=== PATIENT | female | born 1985 | race Caucasian/White ===

== ENCOUNTER 2023-07-12 10:15 | Emergency (ER) | payer OTHER, SELFPAY ==
--- NOTE | ~2023-07-12 | XR_ITS ---
EXAMINATION: XR CHEST CLINICAL INFORMATION: Cough. COMPARISON: Chest radiograph dated 08/05/2011. TECHNIQUE: 2 views of the chest were obtained. FINDINGS: The lungs are clear. The cardiomediastinal silhouette is normal in size. There is no pleural effusion or pneumothorax. No acute osseous abnormality. XR/XR chest 2V IMPRESSION: No acute cardiopulmonary findings.
[2023-07-12 10:43] VITALS: BP 148/102; PULSE 80; RESP 20; TEMP 35.9; O2SAT 99; BMI 42.2
[2023-07-12 11:22] LABS: COVID-19 Test Negative (Negative); IDNOW Serial# 6674DD1D
[2023-07-12 11:32] LABS: IDNOW Serial# BCCEAD1C; Influenza A Negative (Negative); Influenza B2 Negative (Negative)
--- NOTE | 2023-07-12 13:32 | ED_ITS ---
HPI - General Adult General Chief complaint: Upper Respiratory Symptoms Stated complaint: Pain when breathing Time Seen by Provider: 07/12/23 13:17 Source: patient Mode of arrival: ambulatory Limitations: no limitations History of Present Illness HPI narrative: Patient is a 38-year-old female presenting to the emergency department with complaint of cough and shortness of breath. States that symptoms began with a scratchy throat on Wednesday, then progressed to cough. Reports shortness of breath was worse while at work. Denies fevers. Denies any ear pain, chest pain, palpitations. Denies any abdominal pain, nausea, vomiting, diarrhea. MD complaint: Cough Onset (ago): day(s) Treatments prior to arrival: none Related Data Previous Rx's Medication Instructions Recorded benzonatate 100 mg capsule 100 mg PO TID PRN cough #20 caps 07/12/23 Allergies Allergy/AdvReac Type Severity Reaction Status Date / Time No Known Allergies Allergy Verified 07/12/23 10:46 Review of Systems Review of Systems: As per HPI. Yes all other systems are reviewed and are negative Constitutional: Constitutional: Reports as per HPI [facility] Social History Social History Advance Directives: No Advance Directives Information Provided: No Physical Exam ED Vital Signs: Vital Signs - 24 hr 07/12/23 10:43 07/12/23 13:36 Temperature 96.7 F L 97.7 F Pulse Rate 80 74 Respiratory Rate 20 16 Blood Pressure 148/102 H 129/78 Pulse Oximetry 99 98 Oxygen Delivery Method Room Air Room Air BMI result Body Mass Index 42.2 Vital signs have been reviewed and appear to be correct. Blood pressure normal. Heart rate normal. Respiratory rate normal. Temperature normal. Oxygen satur ation normal. Const General: cooperative, healthy appearing and no acute distress Orientation/consciousness: oriented to person, oriented to place, oriented to time and patient oriented x3 Limitations: no limitations HENMT Head: Yes normocephalic and Yes atraumatic Ears: external ears normal General nose exam: Normal external nose present Face and sinus: Yes face symmetric Mouth: oropharynx normal and moist mucous membranes Throat: Yes uvula midline Eyes Pupils: Equal, round and reactive pupils present Neck Neck: Yes normal visual inspection and Yes supple Resp Effort & Inspection: normal respiratory effort and able to speak in complete sentences Auscultation: clear to auscultation bilaterally Cardio Rate: regular rate Rhythm: regular rhythm Heart sounds: S1 normal heart sound present and S2 normal heart sound present GI Palpation (GI): Soft to palpation and nontender Auscultation: normoactive bowel sounds General: Yes no CVA tenderness Back/Spine/Pelvis Back: no CVA tenderness Skin General skin exam: elasticity normal and turgor normal Neuro General: oriented to person, oriented to place, oriented to time, patient oriented x3, moves all extremities, no focal motor deficits and CN's II-XI intact bilaterally Cranial nerves: Yes Equal, round and reactive pupils present Cognition (Neuro): normal cognition Extrem General: Yes full ROM, Yes no pedal edema and Yes no calf tenderness Psych Mental Status: mental status grossly normal Affect: normal affect Thought process: Normal thought process present Medical Decision Making Medical Decision Making [facility] Narrative: Patient is a 38-year-old female presenting to the emergency department with complaint of cough and shortness of breath. On exam patient is awake, A+Ox3, VS WNL, afebrile, normal neurological exam without focal deficits, physical exam findings as above. Given reported symptoms and physical exam findings, initial differential includes viral URI, COVID, flu, strep pharyngitis, bronchitis, pneumonia. X-ray chest notable for no evidence of pneumonia. My interpretation is in agreement with the radiologist's interpretation. Results discussed with patient and all questions answered. Likely viral URI, advised patient treatment is symptom management, can alternate Tylenol and ibuprofen, ensure adequate rest, adequate fluid intake. Will prescribe benzonatate for cough. Instructed patient to follow-up with primary care provider. Return precautions discussed at bedside. Patient verbalized understanding of and agreement with plan. Differential Diagnosis Differential Diagnoses: The differential diagnosis associated with the presentation includes As per [facility] Lab Data [facility] Lab Attestation statement: I reviewed the patient's lab results. As per [facility] Labs: Lab Results 07/12/23 07/12/23 Range/Units 11:01 13:39 COVID-19 (ALONZO) Negative (Negative) COVID-19 Clin Com See Note Influenza Type A (EDUARDO) Negative (Negative) Influenza Type B (EDUARDO) Negative (Negative) Influenza A & B Note See Note S. pyogenes GrpA EDUARDO Negative (Negative) Independent Interpretation I performed an independent interpretation of an: Plain X-Ray Interpretation: No evidence of pneumonia on chest x-ray Radiology Impression Discussion of test interpretation with radiology: I have reviewed the radiologist's reading. Radiologist Impression: XR/XR chest 2V IMPRESSION: No acute cardiopulmonary findings. External Record Review External record reviewed: Inpatient record, Office record and Outpatient record Prescription Management I considered prescription management with: Other Discharge Plan Discharge Clinical Impression: Viral upper respiratory infection Patient Disposition: Home, Self-Care Instructions: Upper Respiratory Infection (DC), Viral Syndrome (ED) Additional Instructions: You were evaluated in the emergency department today for sore throat and cough. Your Covid, flu, and strep tests were all negative. Your symptoms are likely related to a viral illness which will resolve on its own with time and rest. You should ensure adequate fluid intake, and can use Tylenol 650 mg or ibuprofen 600 mg every 6 hours as needed for fever or discomfort. Please follow-up with your primary care provider this week. Return to the emergency department if you develop chest pain, worsening shortness of breath, difficulty swallowing, fever 100.4? F or greater or any other concerning symptoms. Prescriptions: New benzonatate 100 mg capsule 100 mg PO TID PRN (Reason: cough) Qty: 20 0RF
[2023-07-12 13:36] VITALS: BP 129/78; PULSE 74; RESP 16; TEMP 36.5; O2SAT 98
[2023-07-12 13:52] LABS: IDNOW Serial# 58CA691E; Strep A Nucleic Acid Negative (Negative)
== END 2023-07-12 14:32 | disposition home or self-care (01) ==
PROVIDERS: Registered Nurse Emergency; Emergency Provider Emergency Medicine; PCP Family Medicine
DX: J06.9 Acute upper respiratory infection, unspecified (principal); R06.02 Shortness of breath; R05.9 Cough, unspecified; Z11.52 Encounter for screening for COVID-19
CPT/HCPCS: 71046; 87502; 87635; 87651; 99283

== ENCOUNTER 2024-03-04 19:08 | Emergency (ER) | payer OTHER, SELFPAY ==
--- NOTE | ~2024-03-04 | XR_ITS ---
EXAMINATION: XR LUMBOSACRAL SPINE CLINICAL INFORMATION: Back pain. COMPARISON: None available. TECHNIQUE: AP and lateral views of the lumbar spine and lateral view of the lumbosacral junction. FINDINGS: Mild degenerative disc disease at L2-L3 with slight loss of disc height and small anterior osteophytes. Mild facet arthropathy at L5-S1. There is mild degenerative osteophytes in the SI joints. Soft tissues are unremarkable. Bone mineralization is normal. XR/XR lumbar spine 2-3V IMPRESSION: 1. Mild degenerative disc disease at L2-L3. 2. Mild facet arthropathy at L5-S1. Electronically signed by: Brendan Younger MD 03/04/2024 09:52 PM EDT RP
--- NOTE | ~2024-03-04 | XR_ITS ---
EXAMINATION: XR CHEST CLINICAL INFORMATION: Back/shoulder pain COMPARISON: Chest x-ray on 07/12/2023 TECHNIQUE: Frontal view of the chest was obtained. FINDINGS: No significant abnormality is noted involving the heart, lungs, mediastinum, bony thorax or soft tissues. XR/XR chest 2V IMPRESSION: Unremarkable examination. Electronically signed by: Vanessa Gregory MD 03/04/2024 09:34 PM EDT RP
[2024-03-04 19:12] VITALS: BP 148/80; PULSE 84; RESP 22; TEMP 36.6; O2SAT 97; BMI 42.0
--- NOTE | 2024-03-04 19:14 | ED_ITS ---
HPI - Back Pain/Injury General Chief Complaint: Back Pain/Injury Stated Complaint: back and shoulder pain Time Seen by Provider: 03/04/24 20:57 Source: patient and family Mode of arrival: ambulatory Limitations: no limitations History of Present Illness ED Provider: Dr. Carlos Sr HPI Narrative: 38-year-old female with a history of hypertension, depression, chronic back pain who presents emergency department for evaluation of increased middle to lower back pain and right shoulder pain. Patient states she has had lower back pain for years with increased pain over the past year. Patient has a collections assistant that has been evaluating her and she states that the collections assistant thinks that she may have psoriatic arthritis and has been waiting to get an MRI of the patient's back but this is not been done yet. Patient states that she has had increased back pain today and the pain is 10/10. She states the pain is in the center of her back from her mid back down to her buttocks. The patient states that over the last week she has also noted pain in her right shoulder which is worse with movement. She denied fever, chills, numbness or weakness in her lower extremities, loss of bowel or bladder control. The patient states she has been taking Tylenol and ibuprofen with no relief of her discomfort. Related Data Previous Rx's ?Medication ?Instructions ?Recorded benzonatate 100 mg capsule 100 mg PO TID PRN cough #20 caps 07/12/23 cyclobenzaprine 10 mg tablet 10 mg PO TID PRN muscle pain or 03/04/24 spasm #20 tabs oxycodone 5 mg tablet 5 mg PO Q6H PRN pain #14 tabs 03/04/24 prednisone 20 mg tablet 60 mg (3 x 20 mg) PO DAILY 5 days 03/04/24 #15 tabs Allergies Allergy/AdvReac Type Severity Reaction Status Date / Time No Known Allergies Allergy Verified 03/04/24 19:13 Review of Systems 2 Review of Systems: Yes all other systems are reviewed and are negative [facility] Past Medical History [facility] Narrative: Social history: The patient does vape nicotine products. She denies alcohol use. She denies drug use. Social History Social History Advance Directives: No Advance Directives Information Provided: No Do you have a plan to hurt others: No Plan Physical Exam 2 Vital Signs: Vital Signs: Last Vital Signs Temp 97.9 F 03/04/24 19:12 Pulse 84 03/04/24 19:12 Resp 22 H 03/04/24 19:12 BP 148/80 H 03/04/24 19:12 Pulse Ox 97 03/04/24 19:12 O2 Del Method Room Air 03/04/24 19:12 BMI result Body Mass Index 42.0 Vital signs revealed an elevated respiratory rate of 2200 elevated blood pressure of 148/80 Exam: General: Awake, alert in no distress, patient's weight was 117.9 kg, elevated BMI of 42 kg per m2. Head: Normocephalic, atraumatic EENT: PERRL, Lids normal, sclera normal, conjunctiva normal, nose normal , ears normal, throat without erythema or exudates Neck: Supple, no adenopathy Lung: breath sounds symmetric, no wheezing, rales or rhonchi Chest: symmetric movement, nontender Heart: regular rate and rhythm, normal S1, S2 no murmurs or rubs Abdomen: soft, non-tender, nondistended, normal bowel sounds Back: Patient has tenderness palpation of her lumbar sacral vertebrae with tenderness palpation of the lumbar sacral paraspinal muscles. She has negative straight leg raises bilaterally. Extremities: no deformities, patient has no tenderness palpation of her upper extremities. She has full range of motion of both shoulders elbows and wrists with no increased warmth over these joints. Patient's extremities are neurovascularly intact Neuro: Awake, alert, oriented, normal speech, cranial nerves intact, moves all extremities symmetrically Psych: Pleasant, cooperative Course Course Course Narrative: This is a rapid medical exam. Deferred additional HPI, ROS, PE to primary provider. 38 yo female with history of psoriasis, HTN here with complaints of lower/mid back pain x years, right shoulder/right arm numbness x 1 month. Seen by collections assistant and is waiting for an MRI of your pain. Taking motrin/tylenol for pain with no relief. Will obtain labs, urine, EKG, x-ray JOSE EDUARDO Wharton APRN Medical Decision Making Medical Decision Making MDM Narrative: 38-year-old female with a history of hypertension, depression, chronic back pain who presents emergency department for evaluation of increased middle to lower back pain and right shoulder pain. Patient states she has had lower back pain for years with increased pain over the past year. Patient states that the pain in her back increased today and was 10/10 and she got no relief with ibuprofen or Tylenol. Patient was also been having pain in her right shoulder x1 month which is gotten worse as well. Vital signs revealed an elevated respiratory rate and elevated blood pressure. Physical examination did reveal tenderness palpation over the lumbar sacral spine and lumbar sacral paraspinal muscles with a normal neurologic exam and negative straight leg raises bilaterally. Examination the patient's right shoulder revealed no tenderness palpation, no increased warmth over the joints of her right upper extremity and full range of motion. Differential diagnosis: ?Includes but is not limited to: Back pain: Degenerative joint disease, degenerative disc disease, spinal stenosis, musculoskeletal pain, flare-up of chronic pain syndrome Right shoulder pain: Myocardial infarction, myocardial ischemia, musculoskeletal pain, degenerative joint disease, rheumatologic disease Following evaluation was ordered: CBC, BNP, troponin, urinalysis, 12 EKG, chest x-ray two view, lumbar spine x-rays Patient was initially treated with the following: Prednisone 60 mg orally, cyclobenzaprine 10 mg orally, oxycodone 5 mg orally Course: 21:48 Interpretation patient's laboratory evaluation as follows: Normocytic anemia with an H&H of 12 and 34.6. WBC was normal 8700. BNP revealed an elevated glucose of 130. High sensitive troponin I was below detectable limits. Twelve EKG was unremarkable. My interpretation of the patient's chest x-ray and lumbar sacral spine x-rays was no acute disease or fracture noted. Patient's symptoms are consistent with flare-up of her chronic lower back pain and musculoskeletal injury to the right shoulder. Patient will be treated with prednisone 60 mg once a day x5 days since she states this has benefitted her back pain in the past. She was also advised to take Tylenol and for pain not relieved by prednisone and Tylenol she was prescribed oxycodone 5 mg every 6 hours as needed for pain. She was also prescribed cyclobenzaprine 10 mg 3 times a day as needed for pain or spasm. Patient will be referred to our pain management clinic to see if they can help with her current pain. I did tell her she should also follow up with a collections assistant to continue to pursue getting an MRI of her lower back. Admission/Observation Consideration of admission/observation: Escalation of care including admission/observation considered Lab Data MDM Lab Attestation statement: I reviewed the patient's lab results. 03/04/24 19:33 03/04/24 19:18 Labs: Lab Results 03/04/24 03/04/24 Range/Units 19:18 19:33 WBC 8.7 (4.8-10.8) X10*3/uL RBC 4.04 L (4.20-5.50) X10*6/uL Hgb 12.0 (12.0-16.0) g/dl Hct 34.6 L (37.0-47.0) % MCV 85.6 (80.0-98.0) fL MCH 29.7 (27.0-33.0) pg MCHC 34.7 (31.0-35.0) g/dl RDW 12.5 (11.0-16.0) % Plt Count 247 (160-400) X10*3/uL MPV 9.8 (9.4-12.3) fL Immature Gran % (Auto) 0.2 (0.0-0.4) % Neut % (Auto) 62.7 (45-73) % Lymph % (Auto) 28.5 (20-40) % Redwood % (Auto) 6.0 (2-11) % Eos % (Auto) 2.3 (0-4) % Baso % (Auto) 0.3 (0-2) % Lymph # (Auto) 2.5 (1.2-4.9) X10*3/uL Redwood # (Auto) 0.5 (0.1-1.2) X10*3/uL Eos # (Auto) 0.2 (0.0-0.4) X10*3/uL Baso # (Auto) 0.0 (0.0-0.2) X10*3/uL Abs Immat Gran (auto) 0.02 (0.00-0.03) X10*3/uL Absolute Neuts (auto) 5.5 (2.0-8.3) x10*3/uL Absolute Nucleated RBC 0.000 (0.0-0.012) X10*3/uL Nucleated RBC % (auto) 0.0 (0.0-0.2) /100WBC Sodium 142 (135-145) mmol/L Potassium 3.6 (3.3-5.1) mmol/L Chloride 111 H (96-108) mmol/L Carbon Dioxide 22 (22-29) mmol/L Anion Gap 13 (12-20) BUN 10 (9-16) mg/dL Creatinine 0.72 (0.5-1.4) mg/dL Estim Creat Clear Calc 141.1 Estimated GFR > 60 Random Glucose 130 H (60-115) mg/dL Calcium 8.9 (8.4-10.2) mg/dL Troponin I High Sens < 2.7 (<3.5-17.0) ng/L Independent Interpretation I performed an independent interpretation of an: EKG Interpretation: My interpretation patient's 12 lead EKG done at 19:17 hours is as follows: Normal sinus rhythm with a rate of 79, normal IA interval, QRS duration and QTC interval, no ST segment elevation, no ST segment depression, no significant T- wave abnormalities-this is a normal EKG. My interpretation patient's two view chest x-ray is as follows: No acute disease My interpretation patient's lumbar sacral spine x-rays is as follows: No acute disease Radiology Impression Discussion of test interpretation with radiology: I have reviewed the radiologist's reading. Radiologist Impression: XR chest 2V IMPRESSION: Unremarkable examination. Dictated By: Vanessa Gregory MD Discharge Plan Discharge Clinical Impression: Acute exacerbation of chronic low back pain, Acute pain of right shoulder Patient Disposition: Home, Self-Care Instructions: Chronic Pain (ED) Additional Instructions: Your blood work very mild anemia, your hematocrit (percentage of red blood cells) was 34.6. Normal range is 37-47. Your basic metabolic panel was normal. Your high sensitive troponin I (marker of heart damage) was normal. Your EKG was normal. Your chest x-ray was unremarkable. The official reading from the radiologist is pending. The x-rays of your lumbar sacral spine did not reveal any acute broken bones, you do have arthritis in you may have some disc disease based on my interpretation . The official radiology reading is pending. At this time I believe that you having a flare-up of your chronic pain condition. Take prednisone 20 mg pills, 3 pills once a day for 5 days. This is an anti inflammatory steroid. While you ?are taking prednisone, do not take any NSAIDs (Motrin, Advil, ibuprofen, Aleve, naproxen). Take Tylenol (acetaminophen) 500 mg pills, 2 pills every 6 hours as needed for pain. For pain not relieved by prednisone or Tylenol take oxycodone 5 mg pills, 1 pill every 4 hours as needed for pain. Do not drive or work while taking this medication since they can cause sleepiness. Oxycodone is a narcotic medication that can be addicting. If you are concerned about addiction you can ask the pharmacist for less pills or do not get this prescription filled. Take Flexeril (cyclobenzaprine) 10 mg pills, 1 pill every 6-8 hours as needed for pain or spasm. ?This medication will make you sleepy. ?Do not drive or work while taking this medication. Follow-up with your doctor in 2 days. Please return to the emergency department if your symptoms get worse or if you develop any symptoms that are concerning to you. Contact our pain management clinic on the she that I provided to you to see if they can evaluate you and help you with your chronic pain. Prescriptions: New oxycodone 5 mg tablet 5 mg PO Q6H PRN (Reason: pain) Qty: 14 0RF Rx Instructions: Partial Fill upon patient request. cyclobenzaprine 10 mg tablet 10 mg PO TID PRN (Reason: muscle pain or spasm) Qty: 20 0RF prednisone 20 mg tablet 60 mg PO DAILY 5 Days Qty: 15 0RF No Action benzonatate 100 mg capsule 100 mg PO TID PRN (Reason: cough) Qty: 20 0RF Print Language: Welsh
--- NOTE | 2024-03-04 19:18 | ECG_ITS ---
Test Reason : R ARM PAIN/BACK PAIN Blood Pressure : / mmHG Vent. Rate : 079 BPM Atrial Rate : 079 BPM P-R Int : 166 ms QRS Dur : 080 ms QT Int : 392 ms P-R-T Axes : 035 035 041 degrees QTc Int : 449 ms Normal sinus rhythm Normal ECG No previous ECGs available Referred By: Bhavna Wharton Electronically Signed By:JAGUAR ANGELO
[2024-03-04 19:37] LABS: MANUAL DIFF FLAG NO
[2024-03-04 19:38] LABS: Basophils Percent Auto 0.3 % (0-2); Eosinophils Absolute Auto 0.2 X10*3/uL (0.0-0.4); Eosinophils Percent Auto 2.3 % (0-4); Hematocrit 34.6 % (37.0-47.0); Imm Gran Abs Auto 0.02 X10*3/uL (0.00-0.03); Imm Gran Pct Auto 0.2 % (0.0-0.4); Lymphocytes Absolute Auto 2.5 X10*3/uL (1.2-4.9); Lymphocytes Percent Auto 28.5 % (20-40); Mean Corpuscular HGB Conc 34.7 g/dl (31.0-35.0); Mean Corpuscular Hemoglobin 29.7 pg (27.0-33.0); Mean Corpuscular Volume 85.6 fL (80.0-98.0); Mean Platelet Volume 9.8 fL (9.4-12.3); Monocytes Absolute Auto 0.5 X10*3/uL (0.1-1.2); Neutrophils Absolute Auto 5.5 x10*3/uL (2.0-8.3); Neutrophils Percent Auto 62.7 % (45-73); Platelet Count 247 X10*3/uL (160-400); Red Blood Count 4.04 X10*6/uL (4.20-5.50); Red Cell Distribution Width 12.5 % (11.0-16.0); White Blood Count 8.7 X10*3/uL (4.8-10.8)
[2024-03-04 20:00] LABS: Anion Gap 13 (12-20); Blood Urea Nitrogen 10 mg/dL (9-16); Calcium 8.9 mg/dL (8.4-10.2); Carbon Dioxide 22 mmol/L (22-29); Chloride 111 mmol/L (96-108); Creatinine Clr Calc Pharmacy 141.1; Estimated Glomerular Filt Rate > 60; Glucose Random 130 mg/dL (60-115); Potassium 3.6 mmol/L (3.3-5.1); Sodium 142 mmol/L (135-145)
[2024-03-04 20:16] LABS: Troponin-I High Sensitivity < 2.7 ng/L (<3.5-17.0)
[2024-03-04] MEDS: predniSONE 20 MG TABLET 60 MG PO (21:28)
[2024-03-04] MEDS: Cyclobenzaprine HCl 10 MG TABLET PO (21:29)
[2024-03-04] MEDS: oxyCODONE HCl Immed Release 5 MG TABLET PO (21:30)
[2024-03-04 21:57] VITALS: BP 148/80; PULSE 84; RESP 22; TEMP 36.6; O2SAT 97
== END 2024-03-04 21:57 | disposition home or self-care (01) ==
PROVIDERS: Nurse Practitioner Family; Emergency Provider Emergency Medicine Emergency Medical Services; PCP Family Medicine
DX: G89.29 Other chronic pain (principal); M54.50 Low back pain, unspecified; M25.511 Pain in right shoulder
CPT/HCPCS: 36415; 71046; 72100; 80048; 84484; 85025; 93005; 99283